=== PATIENT | female | born 1970 | race Caucasian/White ===

== ENCOUNTER 2017-08-13 09:33 | Observation (INO) | payer OTHER ==
[~2017-08-13] VITALS: Ht 170.2 cm; Wt 153.2 kg
[2017-08-13 10:43] LABS: CHLORIDE 100 mEq/L (99-109); HEMATOCRIT 38.6 % (36.0-46.0); MCH 22.6 PG (29.0-34.0); MCHC 31.1 G/DL (30.0-36.0); MCV 72.6 FL (83-99); PLATELET COUNT 373 K/uL (156-360); POTASSIUM 3.8 mEq/L (3.7-5.4); RBC DIS.WIDTH-CV 18.5 % (11.8-14.6); RBC DIS.WIDTH-SD 46.2 % (39-53); RED BLOOD COUNT 5.32 M/uL (3.80-5.20); SODIUM 135 mEq/L (136-147); WHITE BLOOD COUNT 13.1 K/uL (4.1-10.2)
[2017-08-13 10:45] LABS: GLUCOSE 214 mg/dL (70-99)
[2017-08-13 10:49] LABS: CREATININE 0.8 mg/dL (0.6-1.3); GFR ESTIMATE (CALCULATED) > 59 mL/min/
[2017-08-13 10:55] LABS: TROP-I INTERPRETATION NEGATIVE; TROPONIN-I < 0.01 ng/mL (0.0-0.30)
[2017-08-13 10:59] LABS: D-DIMER ELISA < 150.00 ng/mLDDU (<230)
[2017-08-13 11:07] LABS: UREA NITROGEN (BUN) 12 mg/dL (9-23)
[2017-08-13] MEDS ORDERED: ALLEGRA ALLERG180 MG PO (12:34)
[2017-08-13] MEDS ORDERED: ALPRAZOLAM0.25 M2 PO (12:34)
[2017-08-13] MEDS ORDERED: TOPIRAMATE50 MG PO (12:34)
[2017-08-13] MEDS ORDERED: PROBIOTIC1 EAC1 PO (12:34)
[2017-08-13] MEDS ORDERED: GLUCOTROL XL2.5 MG PO (12:35)
[2017-08-13] MEDS ORDERED: ADVAIR 500/501 DISK IH (12:35)
[2017-08-13] MEDS ORDERED: PRILOSEC20 MG PO (12:35)
[2017-08-13] MEDS ORDERED: METFORMIN HCL500 MG PO (12:35)
[2017-08-13] MEDS ORDERED: MONTELUKAST SOD10 MG PO (12:36)
[2017-08-13] MEDS ORDERED: VALSARTAN-HCTZ1 EACH PO (12:36)
[2017-08-13] MEDS ORDERED: VENTOLIN HFA18 GM IH (12:36)
[2017-08-13] MEDS ORDERED: CITALOPRAM HBR20 MG PO (12:36)
[2017-08-13] MEDS ORDERED: ADVIL PM1 TABLET PO (12:37)
[2017-08-13] MEDS ORDERED: FISH OIL 1,0001 EAC7 PO (12:37)
[2017-08-13] MEDS ORDERED: MELATONIN5 M1 PO (12:37)
[2017-08-13] MEDS ORDERED: MUCINEX1200 MG PO (12:38)
[2017-08-13] MEDS ORDERED: NASACORT10.8 ML BOTH NARES (12:38)
[2017-08-13] MEDS ORDERED: [UNRECOGNIZED DRUG - CODE] PO (12:38)
[2017-08-13] MEDS ORDERED: TRIAMCINOLONE A15 G1 TP (12:39)
[2017-08-13] MEDS ORDERED: BACTROBAN CREAM15 GM TP (12:39)
[2017-08-13] MEDS ORDERED: VITAMIN D2000 UNI1 PO (12:40)
[2017-08-13] MEDS ORDERED: IRON325 M1 PO (12:40)
[2017-08-13] MEDS ORDERED: SYSTANE BALANCE10 ML BOTH EYES (12:41)
[2017-08-13 15:44] VITALS: BP 120/80
[2017-08-13 17:57] LABS: TROP-I INTERPRETATION NEGATIVE; TROPONIN-I < 0.01 ng/mL (0.0-0.30)
[2017-08-13 18:00] LABS: HDL CHOLESTEROL 45 MG/DL (Desirable>=50); LDL CHOLESTEROL 113 mg/dL (Desirable<100); NON-HDL CHOLESTEROL 149 mg/dL (Desirable<160); TOTAL CHOLESTEROL 194 mg/dL (Desirable<200); TRIGLYCERIDES 181 MG/DL (Normal: <150)
[2017-08-13 18:31] LABS: APPEARANCE CLEAR ((CLEAR)); BILIRUBIN NEGATIVE; BLOOD NEGATIVE; COLOR YELLOW ((YELLOW)); GLUCOSE (STRIP) NEGATIVE; KETONES NEGATIVE; LEUKOCYTES NEGATIVE; NITRITE NEGATIVE; PROTEIN (STRIP) NEGATIVE; SPECIFIC GRAVITY 1.012 (1.000-1.030); UROBILINOGEN 0.2 MG/DL (0.2-1.0)
[2017-08-13 19:00] VITALS: BP 116/77
[2017-08-14 00:04] VITALS: BP 117/66
[2017-08-14 01:10] LABS: TROP-I INTERPRETATION NEGATIVE; TROPONIN-I < 0.01 ng/mL (0.0-0.30)
[2017-08-14 04:11] VITALS: BP 121/66
[2017-08-14 05:46] LABS: HEMATOCRIT 36.4 % (36.0-46.0); MCH 22.3 PG (29.0-34.0); MCHC 30.2 G/DL (30.0-36.0); MCV 73.8 FL (83-99); PLATELET COUNT 326 K/uL (156-360); RBC DIS.WIDTH-CV 18.5 % (11.8-14.6); RBC DIS.WIDTH-SD 47.4 % (39-53); RED BLOOD COUNT 4.93 M/uL (3.80-5.20); WHITE BLOOD COUNT 11.7 K/uL (4.1-10.2)
[2017-08-14 05:59] LABS: CHLORIDE 102 MEQ/L (99-109); CREATININE 0.7 MG/DL (0.6-1.3); GFR ESTIMATE (CALCULATED) > 59 mL/min/; GLUCOSE 131 mg/dL (70-99); SODIUM 137 MEQ/L (136-147); UREA NITROGEN (BUN) 11 mg/dL (9-23)
[2017-08-14 07:22] VITALS: BP 115/59
[2017-08-14] MEDS ORDERED: LEVOFLOXACIN500 MG PO (10:35)
[2017-08-14] MEDS ORDERED: ATORVASTATIN CA40 MG PO (10:36)
== END 2017-08-14 11:24 | disposition home or self-care (01) ==
LOC: EME 09:33 → EDOF 12:56 → 4SOUTH 12:56 → EDOF 12:56 → ENRESERV 12:58 → 4SOUTH 15:40
PROVIDERS: Emergency Medicine; Hospitalist
DX: R07.2 Precordial pain (principal); J20.9 Acute bronchitis, unspecified; I10 Essential (primary) hypertension; E11.9 Type 2 diabetes mellitus without complications; E66.01 Morbid (severe) obesity due to excess calories; F41.9 Anxiety disorder, unspecified; K21.9 Gastro-esophageal reflux disease without esophagitis; Z82.49 Family history of ischemic heart disease and other diseases of the circulatory system; Z80.3 Family history of malignant neoplasm of breast; Z80.51 Family history of malignant neoplasm of kidney; Z79.84 Long term (current) use of oral hypoglycemic drugs; Z68.43 Body mass index [BMI] 50.0-59.9, adult
CPT/HCPCS: 71045; 71250; 80048; 80061; 81003; 82948; 83036; 83605; 84484; 85027; 85379; 93005; 93306; 94640; 94640 76; 99202; 99281; 99284; G0378; J1644; J1815; J7030